=== PATIENT | male | born 1945 | race Caucasian/White ===

== ENCOUNTER 2021-01-06 05:48 | Emergency (ER) | payer MEDICARE ==
[~2021-01-06] VITALS: Ht 172.7 cm; Wt 67.0 kg
[~2021-01-06 05:48] MED LIST: AZITHROMYCIN500 MG PO; MYAMBUTOL400 MG PO; RIFAMPIN300 MG PO
[2021-01-06] MEDS ORDERED: PRESERVISION AR1 CAP PO (06:22)
[2021-01-06] MEDS ORDERED: ADULT ASPIRIN R81 MG PO (06:23)
[2021-01-06 06:27] LABS: HEMATOCRIT 42.9 % (39.0-50.0); HEMOGLOBIN 14.1 g/dl (14.0-18.0); IMMATURE GRANULOCYTES 0.2 % (0.0-5.0); MEAN CELL VOLUME 93.1 fL CALC (80.0-100.0); MEAN CORPUSCULAR HGB 30.6 pG CALC (26.0-32.0); MEAN CORPUSCULAR HGB CONC 32.9 g/dL CAL (32.0-36.0); NEUT# 2.51 thou/uL (1.82-7.42); RED BLOOD COUNT 4.61 mill/uL (4.70-6.10); RED CELL DISTRI WIDTH 12.1 % (11.5-15.5)
[2021-01-06 06:29] LABS: ALBUMIN 4.1 g/dL (3.2-5.0); ALKALINE PHOSPHATASE 55 u/l (38-126); ANION GAP 9 (6-22 (CALC)); BUN 15 mg/dL (8-23); BUN/CREATININE RATIO 20 (12-20 (CALC)); CARBON DIOXIDE 28 mmol/l (22-30); CHLORIDE 103 mmol/l (95-108); CREATININE 0.8 mg/dL (0.7-1.3); GFR > 60 ML/MIN (>=60 (CALC)); GFR FOR AFR.AMER. > 60 ML/MIN (>=60 (CALC)); SGOT/AST 24 u/l (19-48); SODIUM 136 mmol/l (137-146); TOTAL PROTEIN 7.2 g/dL (6.3-8.2)
[2021-01-06 06:32] LABS: BILIRUBIN, TOTAL 0.7 mg/dL (0.0-1.4)
[2021-01-06 06:41] LABS: MYOGLOBIN 40 ng/mL (0 - 121)
[2021-01-06] MEDS ORDERED: ZOFRAN4 MG/TAB PO (07:51)
[2021-01-06] MEDS ORDERED: MECLIZINE 2525 MG PO (07:51)
[2021-01-06 08:00] VITALS: BP 118/67
== END 2021-01-06 08:20 | disposition home or self-care (01) ==
LOC: ED 05:48
PROVIDERS: Family Medicine
DX: R42 Dizziness and giddiness (principal); I25.10 Atherosclerotic heart disease of native coronary artery without angina pectoris

== ENCOUNTER 2021-08-10 08:35 | Emergency (ER) | payer MEDICARE ==
[2021-08-10] VITALS (8 sets, daily range): BP systolic 100–129; BP diastolic 58–71
[~2021-08-10] VITALS: Ht 172.7 cm; Wt 68.9 kg
[~2021-08-10 08:35] MED LIST changes: +ADULT ASPIRIN R81 MG PO; +MECLIZINE 2525 MG PO; +PRESERVISION AR1 CAP PO; +ZOFRAN4 MG/TAB PO
[2021-08-10 09:04] LABS: HEMATOCRIT 44.6 % (39.0-50.0); HEMOGLOBIN 14.6 g/dl (14.0-18.0); IMMATURE GRANULOCYTES 0.2 % (0.0-5.0); MEAN CELL VOLUME 92.3 fL CALC (80.0-100.0); MEAN CORPUSCULAR HGB 30.2 pG CALC (26.0-32.0); MEAN CORPUSCULAR HGB CONC 32.7 g/dL CAL (32.0-36.0); NEUT# 11.38 thou/uL (1.82-7.42); RED BLOOD COUNT 4.83 mill/uL (4.70-6.10); RED CELL DISTRI WIDTH 11.9 % (11.5-15.5)
[2021-08-10 09:18] LABS: ALKALINE PHOSPHATASE 59 u/l (38-126); AMYLASE 67 u/l (30-110); ANION GAP 11 (6-22 (CALC)); BILIRUBIN, TOTAL 0.7 mg/dL (0.0-1.4); BUN 10 mg/dL (8-23); BUN/CREATININE RATIO 11 (12-20 (CALC)); CARBON DIOXIDE 29 mmol/l (22-30); CHLORIDE 100 mmol/l (95-108); CREATININE 0.9 mg/dL (0.7-1.3); GFR > 60 ML/MIN (>=60 (CALC)); GFR FOR AFR.AMER. > 60 ML/MIN (>=60 (CALC)); LIPASE 40 u/l (23-300); POTASSIUM 4.2 mmol/l (3.5-5.1); SGOT/AST 17 u/l (19-48); SODIUM 134 mmol/l (137-146); TOTAL PROTEIN 7.3 g/dL (6.3-8.2)
[2021-08-10 09:29] LABS: ACT PARTIAL THROMBO TIME 30.3 SECONDS (20.0-32.5); PROTHROMBIN TIME 10.9 SECONDS (9.0-12.5)
[2021-08-10] MEDS ORDERED: METRONIDAZOLE500 MG PO (11:34)
[2021-08-10] MEDS ORDERED: CIPROFLOXACN500 MG PO ×2 (11:34→11:38)
[2021-08-10] MEDS ORDERED: HYDROCO/APAP1 TA9 PO (11:34)
[2021-08-10] MEDS ORDERED: ULTRAM50 MG PO (13:28)
== END 2021-08-10 12:00 | disposition left against medical advice (07) ==
LOC: ED 08:35
DX: K57.32 Diverticulitis of large intestine without perforation or abscess without bleeding (principal); K80.20 Calculus of gallbladder without cholecystitis without obstruction; J98.4 Other disorders of lung; I25.10 Atherosclerotic heart disease of native coronary artery without angina pectoris; K46.9 Unspecified abdominal hernia without obstruction or gangrene; Z91.19 Patient's noncompliance with other medical treatment and regimen; Z20.822 Contact with and (suspected) exposure to COVID-19
CPT/HCPCS: Q9967